=== PATIENT | male | born 1940 | race Caucasian/White ===

== ENCOUNTER → 2017-05-16 | Outpatient (CLI) | payer MEDICARE ==
[~2017-05-16] MED LIST: REGADENOSON 0.4 MG/5 ML SYRINGE ONE
== END | disposition home or self-care (01) ==
LOC: RAD 09:26
PROVIDERS: ATTEND Internal Medicine Cardiovascular Disease
DX: I25.10 Atherosclerotic heart disease of native coronary artery without angina pectoris (principal)
CPT/HCPCS: 78452; 93017; A9502; J2785

== ENCOUNTER → 2018-05-28 | Outpatient (CLI) | payer MEDICARE | END | disposition home or self-care (01) | LOC: CFH 08:15 | PROVIDERS: ATTEND Internal Medicine Cardiovascular Disease | DX: I45.10 Unspecified right bundle-branch block (principal); I25.10 Atherosclerotic heart disease of native coronary artery without angina pectoris; Z95.1 Presence of aortocoronary bypass graft | CPT/HCPCS: 78452; 93017; A9502; J2785 ==

== ENCOUNTER → 2018-12-22 | Outpatient (CLI) | payer MEDICARE | END | disposition home or self-care (01) | LOC: CVU 13:04 | PROVIDERS: ATTEND Internal Medicine Cardiovascular Disease | DX: I65.23 Occlusion and stenosis of bilateral carotid arteries (principal); R42 Dizziness and giddiness | CPT/HCPCS: 93880 ==

== ENCOUNTER 2019-07-22 08:04 | Outpatient (CLI) | payer MEDICARE | END 2019-07-22 23:59 | disposition home or self-care (01) | LOC: CFH 08:04 | PROVIDERS: ATTEND Internal Medicine Cardiovascular Disease | DX: Z95.1 Presence of aortocoronary bypass graft (principal) | CPT/HCPCS: 78452; 93017; A9502; J2785 ==